=== PATIENT | male | born 1980 | race Caucasian/White ===

== ENCOUNTER 2023-10-27 08:51 | Day surgery (SDC) | payer OTHER ==
[~2023-10-27 08:51] MED LIST: Lactated Ringers 1,000 ML IV SCH
[2023-10-27] MEDS: Lactated Ringers 1,000 ML IV SCH (09:22)
[2023-10-27] MEDS ORDERED: propofoL 50 ML ONE (09:32)
[2023-10-27] MEDS ORDERED: Lactated Ringers 1,000 ML IV SCH (10:30)
== END 2023-10-27 10:45 | disposition home or self-care (01) ==
LOC: MW.SDS 08:51
PROVIDERS: ATTEND Surgery
DX: K92.1 Melena (principal); R19.4 Change in bowel habit; Z80.0 Family history of malignant neoplasm of digestive organs; I10 Essential (primary) hypertension; F41.8 Other specified anxiety disorders; F17.290 Nicotine dependence, other tobacco product, uncomplicated; Z79.899 Other long term (current) drug therapy
CPT/HCPCS: 45378; J2704; J7120